=== PATIENT | male | born 1985 | race Caucasian/White ===

== ENCOUNTER → 2018-08-26 | Emergency (ER) | payer SELFPAY ==
[~2018-08-26] VITALS: Ht 185.4 cm; Wt 74.0 kg
[~2018-08-26] MED LIST: ACET-141 PO; IBUP-1561 PO
[2018-08-26 02:14] VITALS: BP 107/71; PULSE 71; RESP 18; Ht 185.4 cm; Wt 74.0 kg
--- NOTE | 2018-08-26 04:30 | ERD ---
ER Documentation Chief Complaint Chief Complaint L UPPER LEG PAIN X'S 3 DAYS HPI 32-year-old male with history of varicose vein status post ablation procedure about 3 months ago presents for left upper leg pain x3 days. He is noticed that the pain is 6 out of 10 over the upper thigh area, anterior medial. The pain is over the area where he previously had a varicose veins ablation procedure. He states that his concern for blood clot. Took some aspirin at home without relief. Denies fevers or chills. Denies chest pain or shortness of breath. Denies abdominal pain, nausea, vomiting. No other modifying factors noted, no other treatments tried at home. ROS All systems reviewed and are negative except as per history of present illness. Medications Home Meds Active Scripts Ibuprofen* (Motrin*) 400 Mg Tab, 400 MG PO Q6H PRN for PAIN, #30 TAB Prov:NEEMA GARCIA DO 08/26/18 Acetaminophen* (Acetaminophen*) 500 MG Extra Strength Tablet, 500 MG PO Q4H PRN for PAIN AND OR ELEVATED TEMP, #30 TAB Prov:NEEMA GARCIA DO 08/26/18 Allergies Allergies: Coded Allergies: No Known Allergy (Unverified , 08/26/18) PMhx/Soc History of Surgery: Yes (VARICOSE VEIN REMOVAL LEFT LEG ) Hx Alcohol Use: Yes Hx Substance Use: No Hx Tobacco Use: No Smoking Status: Never smoker FmHx Family History: No coronary disease Physical Exam Vitals Vital Signs Date Temp Pulse Resp B/P (MAP) Pulse Ox O2 O2 Flow FiO2 Time Delivery Rate 08/26/18 96.9 71 18 107/71 100 02:14 (83) Physical Exam Const: No acute distress Resp: Clear to auscultation bilaterally Cardio: Regular rate and rhythm, no murmurs Abd: Soft, non tender, non distended. Normal bowel sounds Skin: No petechiae or rashes Back: No midline or flank tenderness Ext: Left upper thigh tenderness palpation diffusely Neur: Awake and alert Psych: Normal Mood and Affect Procedures/MDM Medical Decision Making: Differential diagnosis includes but not limited to fracture, dislocation, muscle strain, ligamentous sprain, osteomyelitis, gout, DVT Patient appeared well on physical exam. There was tenderness over the left upper leg Patient was neurovascularly intact Patient denies fever, no recent infection, low suspicion for septic joint or osteomyelitis. ED course: Venous Doppler of the left leg was negative for DVT. Patient informed of results. There is possibility patient may have a muscle strain. No fevers or recent infection to indicate septic joint or osteomyelitis. Prescription(s): Patient given prescription for supportive medication(s). Patient advised to follow up with PCP in 1-2 days. Patient advised to return to ED for new or worsening symptoms. Patient stable on discharge from the ED. Disclaimer: Inadvertent spelling and grammatical errors are likely due to EHR/dictation software use and do not reflect on the overall quality of patient care. Also, please note that the electronic time recorded on this note does not necessarily reflect the actual time of the patient encounter. Departure Diagnosis: Primary Impression: Pain of left leg Condition: Fair Patient Instructions: Possible Causes of Low Back or Leg Pain Referrals: [facility] YOU HAVE RECEIVED A MEDICAL SCREENING EXAM AND THE RESULTS INDICATE THAT YOU DO NOT HAVE A CONDITION THAT REQUIRES URGENT TREATMENT IN THE EMERGENCY DEPARTMENT. FURTHER EVALUATION AND TREATMENT OF YOUR CONDITION CAN WAIT UNTIL YOU ARE SEEN IN YOUR DOCTORS OFFICE WITHIN THE NEXT 1-2 DAYS. IT IS YOUR RESPONSIBILITY TO MAKE AN APPOINTMENT FOR FOLOW-UP CARE. IF YOU HAVE A PRIMARY DOCTOR --you should call your primary doctor and schedule an appointment IF YOU DO NOT HAVE A PRIMARY DOCTOR YOU CAN CALL OUR PHYSICIAN REFERRAL HOTLINE AT IF YOU CAN NOT AFFORD TO SEE A PHYSICIAN YOU CAN CHOSE FROM THE FOLLOWING [facility] [id number] [facility]. [facility] [address] [facility] [facility] [address] [facility] [address] [facility] [address] [facility]. [facility]. [address] Additional Instructions: Call your primary care doctor TOMORROW for an appointment during the next 1-2 days.See the doctor sooner or return here if your condition worsens before your appointment time. NEEMA GARCIA DO Aug 26, 2018 04:30
== END | disposition home or self-care (01) ==
LOC: FTE 02:13
DX: M79.652 Pain in left thigh (principal)
CPT/HCPCS: 93971